=== PATIENT | male | born 1990 | race Caucasian/White ===

== ENCOUNTER 2019-04-20 13:07 | Outpatient (CLI) | payer OTHER ==
--- NOTE | 2019-04-21 16:04 | MRI Report ---
Reason: SPRAIN OF UNSPECIFIED LIGAMENT OF LEFT ANKLE, INIT Procedure Date: 04/20/2019 Accession Number: [id number] / [id number] Procedure: MRI - Ankle LT W/O CPT Code: FULL RESULT: EXAM: LEFT ANKLE/HINDFOOT MRI WITHOUT CONTRAST EXAM DATE: 04/20/2019 02:18 PM. CLINICAL HISTORY: Sprain of unspecified ligament of left ankle, initial encounter. COMPARISON: None. TECHNIQUE: Multiplanar, multisequence T1-weighted and fluid-sensitive sequences of the ankle/hindfoot without contrast. Other: None. FINDINGS: Bones: No fractures or subluxations. No marrow edema. No bone lesions. Articular Cartilage: Focal chondromalacia middle subtalar joint (image 15 series 501 and image 20 series 901). Ligaments: Grade 1 tear anterior talofibular ligament. Grade 1 tear calcaneofibular ligament. The deep and superficial deltoid and spring ligaments are intact. Intact anterior distal tibiofibular ligament. Anterior Tendons: The tibialis anterior, extensor hallucis longus, and extensor digitorum longus tendons are unremarkable. Medial Tendons: The tibialis posterior, flexor digitorum longus, and flexor hallucis longus tendons are unremarkable. Lateral Tendons: The peroneus brevis and longus are unremarkable. Achilles Tendon: The Achilles tendon is unremarkable. Musculature: No edema or fatty atrophy. Other: Small fluid collection posterior recess ankle joint. Small fluid collection posterior recess posterior subtalar joint. The contents of the sinus tarsi and tarsal tunnel are unremarkable. No plantar fasciitis. The subcutaneous tissues are unremarkable. IMPRESSION: 1. Grade 1 tear anterior talofibular ligament and calcaneofibular ligament. 2. Increased fluid posterior recess ankle joint and posterior subtalar joint. [facility]
== END 2019-04-20 13:08 | disposition home or self-care (01) ==
LOC: DI 13:07
DX: S93.492A Sprain of other ligament of left ankle, initial encounter (principal); S93.412A Sprain of calcaneofibular ligament of left ankle, initial encounter; M25.472 Effusion, left ankle

== ENCOUNTER 2023-09-15 17:30 | Outpatient (CLI) | payer OTHER ==
[2023-09-16 00:25] LABS: SARS-CoV-2 -RESP PCR PANEL NOT DETECTED
[2023-09-16 00:26] LABS: INFLUENZA A H1 2009- RESP PCR DETECTED; INFLUENZA B - RESP PCR PANEL NOT DETECTED; RSV- RESP PCR PANEL NOT DETECTED
== END 2023-09-15 17:45 | disposition home or self-care (01) ==
LOC: LAB.N 17:30
PROVIDERS: ATTEND Physician Assistant Medical
DX: J06.9 Acute upper respiratory infection, unspecified (principal)
CPT/HCPCS: 87637